=== PATIENT | male | born 1950 | race Caucasian/White ===

== ENCOUNTER 2018-01-26 22:20 | Inpatient (IN) | payer MEDICARE, OTHER ==
[~2018-01-26 22:20] MED LIST: ISOVUE-370 76%-LOCM 1 ML ONE
[2018-01-26 23:00] LABS: #Eosinphils 2.7 thou/uL (0.0-0.7); #Lymphocytes 1.5 thou/uL (1.20-3.40); #Monocytes 1.3 thou/uL (0.11-0.59); #Neutrophils 8.5 thou/uL (1.40-6.50); %Basophils 0.1 % (0.0-1.0); %Eosinophils 19.6 % (0.0-10.0); %Lymphocytes 10.5 % (21.0-51.0); %Monocytes 9.3 % (0.0-10.0); %Neutrophils 60.6 % (42.0-75.0); Hemoglobin 17.9 g/dL (14.0-18.0); Mean Corpuscular HGB CONC 32.7 g/dL (32.0-36.0); Mean Corpuscular Volume 91.6 fl (80.0-94.0); Mean Platelet Volume 7.7 fL (7.4-10.4); Platelet Count 227 thou/uL (130-400); Red Blood Cell (RBC) Count 5.96 mill/uL (4.70-6.10)
[2018-01-26] MEDS ORDERED: Ondansetron ODT 4 MG TAB ONE (23:15)
[2018-01-26 23:20] LABS: ALT (SGPT) 20 U/L (8-55); AST (SGOT) 16 U/L (5-34); Albumin 3.9 g/dL (3.4-4.8); Alkaline Phosphatase 96 U/L (40-150); Anion Gap 12 mmol/L (10-20); BUN (Urea Nitrogen) 31 mg/dL (8.4-25.7); Bilirubin, Total 0.5 mg/dL (0.2-1.2); CK (CPK) 74 U/L (30-200); Calc. Creatinine Clearance 0 mL/min (70-130); Calcium 9.1 mg/dL (7.8-10.44); Carbon Dioxide 18 mmol/L (23-31); Chloride 109 mmol/L (98-107); Estimated GFR-MDRD 46; Globulin 2.7 g/dL (2.4-3.5); Glucose 125 mg/dL (80-115); Lipase 28 U/L (8-78); Potassium 4.5 mmol/L (3.5-5.1); Protein, Total 6.6 g/dL (5.8-8.1); Sodium 134 mmol/L (136-145)
[2018-01-27] MEDS ORDERED: Ondansetron HCl/PF 4 MG/2 ML Vial IVP PRN (02:20)
[2018-01-27] MEDS ORDERED: Ondansetron ODT 4 MG TAB SL PRN (02:20)
[2018-01-27 02:38] VITALS: BMI 36.3
[2018-01-27] MEDS: Promethazine HCl 12.5 MG in Sodium Chloride 0.9% 50 ML IVPB PRN ×2 (05:15→12:31)
[2018-01-27] MEDS ORDERED: Sodium Chloride 0.9% 1,000 ML IV SCH (07:00)
--- NOTE | 2018-01-27 07:25 | CT ---
CONTRAST ENHANCED CT IMAGES OF ABDOMEN AND PELVIS: HISTORY: Abdominal pain. FINDINGS: Contrast-enhanced CT images of the abdomen and pelvis are obtained, unfortunately without benefit of oral contrast. The lung bases are unremarkable. No evidence of free intraperitoneal air is seen. The spleen is unremarkable. The liver is unremarkable, except for a tiny newly developed approximate ly 6 mm area of hypodensity in the left hepatic lobe. This lesion is too small to further characteri ze at this time. The gallbladder is unremarkable. The pancreas is unremarkable. Adrenal glands an d kidneys are unremarkable. No dilated loops of small bowel seen. A normal appendix is visualized. There does appear to be some thickening of portions of the transverse colon concerning for possible c olitis. Some fluid is seen in the sigmoid colon and rectum compatible with diarrhea. Severe bilateral L4-5 and L5-S1 facet degenerative changes are seen. IMPRESSION: Area of colonic thickening of the transverse colon concerning for colitis. Correlate with direct vis ualization. POS: [facility]
--- NOTE | 2018-01-27 13:35 | HP ---
DATE OF ADMISSION: 01/27/2018 CHIEF COMPLAINT: Severe diarrhea. HISTORY OF PRESENT ILLNESS: This is a 67-year-old morbidly obese white male with a known past medica l history of hypertension and dyslipidemia. The patient was in his usual state of health until 2 wee ks ago. He started noticing severe diarrhea, which got corrected on its own and for the past 5 days, it restarted again with severe diarrhea, having 4-5 bowel movements, loose, watery in consistency, n ot associated with blood in the stool, associated with severe vomiting occasionally. He has not been able to tolerate any diet and has been having some cramping pain in the right upper quadrant going a cross to the left upper quadrant. Pain is rated as 4 on 10 intensity, aggravated on eating. No reli eving factors. He was taking loperamide with no benefit. He has been having severe diarrhea, now is having a very sore bottom. He denies taking any antibiotics recently. Denies any sick exposure. Denies eating any outside food . His daughter is at the bedside, also has a history of Clostridium difficile, so possibly patient rahul ibanezld have had a Clostridium difficile colonization. PAST MEDICAL HISTORY: 1. Hypertension. 2. Dyslipidemia. 3. History of sinus bradycardia. PAST SURGICAL HISTORY: History of carotid endarterectomy, history of tonsillectomy. FAMILY HISTORY: Mother from lung cancer. Father had multiple vascular events and a history of AR and diabetes. SOCIAL HISTORY: The patient denies any alcohol. No history of smoking. No history of illicit drug use. He lives with his . ALLERGIES: No known drug allergies. HOME MEDICATIONS: 1. Aspirin 81 mg p.o. daily. 2. Aggrenox. 3. Esomeprazole. 4. Lisinopril. 5. Simvastatin. REVIEW OF SYSTEMS: All 12 systems are reviewed with the patient thoroughly and found to be negative at this time. Constitutional: Weight loss or gain, sense of well-being, ability to conduct usual activities, exerc ise tolerance. Skin/Breast: Rash, itching, changes in hair growth or loss, nail changes, breast lumps, tenderness, swelling, nipple discharge. Eyes: Vision, double vision, tearing, blind spots, pain. ENT/Mouth: Headaches (location, time of onset, duration, precipitating factors), vertigo, lightheadedness, injury. Vision, double vision, tearing, blind spots, pain, nose b leeding, colds, obstruction, discharge, dental difficulties, gingival bleeding, dentures, neck stiffn ess, pain, tenderness, masses in thyroid or other areas Cardiovascular: Precordial pain, substernal distress, palpitations, syncope, dyspnea on exertion, or thopnea, nocturnal paroxysmal dyspnea, edema, cyanosis, hypertension, heart murmurs, varicosities, ph lebitis, claudication. Respiratory: Pain, shortness of breath, wheezing, stridor, cough, hemoptysis, fever or night sweats Gastrointestinal: Poor appetite, dysphagia, indigestion, abdominal pain, heartburn, eructation, naus ea, vomiting, hematemesis, jaundice, constipation, or diarrhea, abnormal stools (aracelis-colored, tarry, bloody, greasy, foul smelling), flatulence, hemorrhoids, recent changes in bowel habits. Genitourinary: Urgency, frequency, dysuria, nocturia, hematuria, polyuria, oliguria, unusual (or delmi nge in) color of urine, stones, hesitancy, change in size of stream, dribbling, acute retention or in continence, libido, potency. Musculoskeletal: Pain, swelling, redness or heat of muscles or joints, limitation, of motion, muscular weakness, atrophy, cramps. Neurologic/Psychiatric: Convulsions, paralyses, tremor, incoordination, parasthesias, difficulties w ith memory of speech, sensory or motor disturbances, or muscular coordination (ataxia, tremor), emoti onal problems, anxiety, depression, previous psychiatric care, unusual perceptions, hallucinations. Allergy/Immunologic: Skin rash, anemia, bleeding tendency, polydipsia, polyuria, intolerance to heat or cold. ALLERGIES: No known drug allergies. PHYSICAL EXAMINATION: VITAL SIGNS: Blood pressures are 143/80, heart rate is 56, respiratory rate 16, saturation 95%. GENERAL: The patient is seen lying in the bed supine, does not appear to be in acute distress at thi s time. HEENT: Atraumatic, normocephalic. PERRLA. Extraocular movements were intact. Oral mucosa is dry. CARDIOVASCULAR: S1, S2 normal. No murmurs, rubs or gallops. LUNGS: Bilateral air entry was equal. No wheezing, no crackles. ABDOMEN: Soft, nontender. No guarding. No rebound tenderness. Bowel sounds are normal. MUSCULOSKELETAL: No calf tenderness. No pedal edema. No joint tenderness. No joint swelling. SKIN: No cyanosis, no erythema, no rash, no pallor. NEUROLOGIC: Cranial nerve examination II-XII intact. No focal deficits were noted at this time. LABORATORY DATA: WBC is 14,000, hemoglobin 17.9, hematocrit 54.6, platelets 227. Sodium is 134, pot assium 4.5, chloride 109, bicarbonate is 18, BUN is 31, creatinine 1.51. CT of the abdomen was done this morning showed an area of colonic thickening of the transverse colon concerning for colitis. ASSESSMENT AND PLAN: 1. Acute infectious colitis. 2. Sepsis. 3. Acute kidney injury. 4. Severe dehydration. 5. Possible Clostridium difficile colitis. 6. Hypertension. 7. Hyperlipidemia. 8. History of sinus bradycardia. PLAN: 1. Plan is to closely monitor this patient. We will start the patient on IV antibiotics and we will consult GI as the patient has colonic wall thickening and the patient might end up needing a colonos copy. 2. We will start the patient on ciprofloxacin and Flagyl 500 mg IV q.8 hours. We will wait for the stool sample for Clostridium difficile infection. 3. The patient has evidence of sepsis with elevated white count. We will closely monitor this patie nt for any development of worsening sepsis. 4. The patient has elevated creatinine, most likely from severe dehydration. We will continue with aggressive IV hydration at this time. 5. The patient has sinus bradycardia which has been persistent for many years. We will closely brittany tor the patient. Patient is not symptomatic with low heart rate. 6. DVT prophylaxis, on Lovenox. I spent 75 minutes with this patient.
[2018-01-27] MEDS: metroNIDAZOLE 500 MG in Premix Bag 1 BAG IVPB SCH ×2 (14:07→20:59)
[2018-01-27] MEDS: Sodium Chloride 0.9% 1,000 ML IV SCH (18:09)
--- NOTE | 2018-01-27 20:33 | CON ---
DATE OF CONSULTATION: 01/27/2018 HISTORY OF PRESENT ILLNESS: The patient is a 67-year-old male who was in his usual state o f health until 2 weeks prior to admission when he started developing diarrhea. He had it for 2 days and then it seemed to resolve, but then came back more severe after being gone for 3 days. He had mu ltiple bowel movements. He was seen in the [facility] and was told that his kidn ey functions were elevated. He denies any abdominal pain, any nausea, vomiting, any recent weight lo ss. He denies any antibiotic use prior to this episode. He denies any travel outside the country. He denies any blood in his stool. He reports he had a colonoscopy here approximately 3 years ago. PAST MEDICAL HISTORY: Significant for hypertension, hyperlipidemia, bradycardia. PAST SURGICAL HISTORY: Includes carotid endarterectomy, cataract surgery. SOCIAL HISTORY: Does not smoke or drink. FAMILY HISTORY: Negative for GI or liver disease. ALLERGIES: No known allergies. MEDICATIONS: Simvastatin 20 mg p.o. q.8 hours, lisinopril/hydrochlorothiazide 20/25 one p.o. daily, Nexium 20 mg p.o. daily, aspirin 1 p.o. daily, Aggrenox 1 p.o. b.i.d. REVIEW OF SYSTEMS: Constitutional: No fever, chills. No weight loss. Eyes: No blurred vision or double vision. ENT: No sore throat or earaches. Cardiovascular: No chest pain or palpitation. Pu lmonary: No shortness of breath, cough, or wheezing. Gastrointestinal: See above. Genitourinary: No hematuria or dysuria. Musculoskeletal: No joint pain or muscle ache. Skin: No rashes. Neurol ogic: No seizure activity or numbness. PHYSICAL EXAMINATION: GENERAL: Shows overweight male in no acute distress. VITAL SIGNS: Temperature 98, pulse 56, respiratory rate 16, blood pressure 143/80. HEENT: Unremarkable. NECK: Supple. CHEST: Clear. CARDIOVASCULAR: Regular rate and rhythm. ABDOMEN: Soft, nontender without organomegaly or masses. Bowel sounds are present and normoactive. RECTAL: Deferred. EXTREMITIES: Normal. NEUROLOGIC: Nonfocal. LABORATORY DATA: White blood cell count of 14, hemoglobin of 17.9, hematocrit of 54.6. Chemistries significant for sodium 134, chloride 109, CO2 of 18, BUN 31, creatinine 1.51, glucose 125. Stool for lactoferrin was elevated. Stool for rapid parasite screen was negative. Abdominal and pelvic CT sh owed area of colonic thickening in the transverse colon concerning for colitis. Reviewing old record s, the patient underwent an EGD and colonoscopy on 09/25/2015 for a history of nausea, vomiting, diar marli, and abdominal pain with abnormal CT showing mural thickening in the distal small bowel and prox imal dilatation. Both exams were normal. ASSESSMENT: Acute diarrhea - probably infectious. Colonoscopy from 2-1/2 years ago was essentially negative. RECOMMENDATIONS: 1. Continue stool studies. 2. Empiric antibiotics. 3. Hold on colonoscopy at this time pending stool studies and response to antibiotics.
[2018-01-27] MEDS: Atorvastatin Calcium 10 MG TAB PO SCH (20:58)
[2018-01-27] MEDS: Aggrenox 200-25mg CAP PO SCH (20:58)
[2018-01-27] MEDS ORDERED: Simvastatin 20 MG TAB PO SCH (21:00)
[2018-01-28] MEDS: Sodium Chloride 0.9% 1,000 ML IV SCH ×2 (04:01→15:04)
[2018-01-28] MEDS: metroNIDAZOLE 500 MG in Premix Bag 1 BAG IVPB SCH ×3 (04:01→20:57)
[2018-01-28 05:11] LABS: Anion Gap 5 mmol/L (10-20); BUN (Urea Nitrogen) 24 mg/dL (8.4-25.7); Calc. Creatinine Clearance 91 mL/min (70-130); Calcium 8.4 mg/dL (7.8-10.44); Carbon Dioxide 27 mmol/L (23-31); Chloride 112 mmol/L (98-107); Estimated GFR-MDRD 56; Glucose 97 mg/dL (80-115); Potassium 4.4 mmol/L (3.5-5.1); Sodium 140 mmol/L (136-145)
[2018-01-28 05:24] LABS: Band 6 % (5-11); Eosinophils 35 % (0-10); Hemoglobin 14.7 g/dL (14.0-18.0); Lymphocytes 9 % (21-51); MDiff Complete? YES; Mean Corpuscular HGB CONC 32.9 g/dL (32.0-36.0); Mean Corpuscular Hemoglobin 30.2 pg (27.0-31.0); Mean Platelet Volume 7.9 fL (7.4-10.4); Monocytes 7 % (0-10); Neutrophil 42 % (42-75); Nucleated RBC 1 % (0); PLT Morphology Comment Appears Adequate; Platelet Count 210 thou/uL (130-400); RBC Distribution Width 12.9 % (11.5-14.5); Red Blood Cell (RBC) Count 4.87 mill/uL (4.70-6.10); White Blood Cell (WBC) Count 13.6 thou/uL (4.8-10.8)
[2018-01-28] MEDS: Aggrenox 200-25mg CAP PO SCH ×2 (08:18→20:56)
[2018-01-28] MEDS ORDERED: Aspirin 325 MG TAB PO SCH (09:00)
--- NOTE | 2018-01-28 12:44 | PRG ---
DATE OF SERVICE: 01/28/2018 SUBJECTIVE: The patient is feeling much better today. He is having no diarrhea, no nausea, vomiting , no abdominal pain. OBJECTIVE: VITAL SIGNS: Temperature is 98.5, pulse 57, respiratory rate 18, blood pressure 128/70. HEENT: Unremarkable. NECK: Supple. CHEST: Clear. CARDIOVASCULAR: Regular rate and rhythm. ABDOMEN: Benign. LABORATORY DATA: Shows a white blood cell count 13.6. BMP shows chloride 112. Stool for C. diffici le is negative. ASSESSMENT: Acute infectious diarrhea -- seems to be resolving. RECOMMENDATIONS: 1. Continue antibiotics. 2. No colonoscopy at this time. 3. Stable for discharge from a gastrointestinal standpoint.
--- NOTE | 2018-01-28 14:57 | PDOC.PN ---
- Subjective Encounter Start Date: 01/28/18 Encounter Start Time: 13:00 PAtient is seen today, alert and oriented,. his Diarrhea is improved now, pt is on IV abx, WBC is trending luis, he has lot of Eosinophils likely has some parasite contributing to diarrhea, - Objective MAR Reviewed: Yes Vital Signs & Weight: Vital Signs (12 hours) Temp Pulse Resp BP BP Pulse Ox 01/28/18 11:30 98.5 F 793 H 18 128/70 93 L 01/28/18 08:00 97.7 F 57 L 16 18 L 01/28/18 07:43 97.7 F 57 L 16 136/73 96 Weight Admit Weight 253 lb 8 oz Weight 253 lb 8 oz I&O: 01/27/18 01/28/18 01/29/18 06:59 06:59 06:59 Intake Total 400 Output Total 750 Balance -350 Result Diagrams: 01/28/18 03:58 01/28/18 03:58 Radiology Reviewed by me: Yes Phys Exam - Physical Examination HEENT: PERRLA, moist MMs Neck: no nodes, no JVD Respiratory: no wheezing, no rales Cardiovascular: RRR, no significant murmur Gastrointestinal: soft, non-tender Musculoskeletal: no edema, pulses present Neurological: non-focal, normal sensation Lymphatic: no nodes Psychiatric: normal affect, A&O x 3 Skin: no rash, normal turgor Dx/Plan (1) Severe diarrhea Code(s): K52.9 - NONINFECTIVE GASTROENTERITIS AND COLITIS, UNSPECIFIED Status : Acute Comment: Diarrhea is improved, Will continue with IV antibiotics, Will order Stool Camplyobacter/ giardia cultures.Add probiotics. (2) Acute infectious Colitis Status: Acute Comment: Will continue with IV Flagyl/ Levoflocacin, pt WBC is trending down, Improving Diarrhea, No pain today. (3) Colonic thickening Code(s): K63.9 - DISEASE OF INTESTINE, UNSPECIFIED Status: Acute Comment: GI is consulted, No Colonoscopy planned . (4) Severe dehydration Code(s): E86.0 - DEHYDRATION Status: Acute Comment: Improving, Will encourage oral hydration, d/c IV fluids. (5) Morbid obesity Code(s): E66.01 - MORBID (SEVERE) OBESITY DUE TO EXCESS CALORIES Status: Acute - Plan cont current plan of care, gong catheter, continue antibiotics, PT/OT, incentive spirometry, out of bed/ambulate, DVT proph w/SCDs * .
[2018-01-28] MEDS: Atorvastatin Calcium 10 MG TAB PO SCH (20:56)
[2018-01-28] MEDS: Saccharomyces boulardii 250 MG CAP PO SCH (20:56)
[2018-01-29 05:02] LABS: Anion Gap 6 mmol/L (10-20); BUN (Urea Nitrogen) 21 mg/dL (8.4-25.7); Calc. Creatinine Clearance 100 mL/min (70-130); Calcium 8.5 mg/dL (7.8-10.44); Carbon Dioxide 25 mmol/L (23-31); Chloride 113 mmol/L (98-107); Estimated GFR-MDRD 62; Glucose 88 mg/dL (80-115); Potassium 3.9 mmol/L (3.5-5.1); Sodium 140 mmol/L (136-145)
[2018-01-29 05:09] LABS: Band 3 % (5-11); Eosinophils 27 % (0-10); Hemoglobin 13.5 g/dL (14.0-18.0); Lymphocytes 26 % (21-51); MDiff Complete? YES; Mean Corpuscular Hemoglobin 31.3 pg (27.0-31.0); Mean Corpuscular Volume 91.9 fl (80.0-94.0); Mean Platelet Volume 7.7 fL (7.4-10.4); Monocytes 5 % (0-10); Neutrophil 39 % (42-75); PLT Morphology Comment Appears Adequate; Platelet Count 196 thou/uL (130-400); RBC Distribution Width 12.7 % (11.5-14.5); Red Blood Cell (RBC) Count 4.31 mill/uL (4.70-6.10)
[2018-01-29] MEDS: metroNIDAZOLE 500 MG in Premix Bag 1 BAG IVPB SCH ×3 (05:11→20:16)
[2018-01-29] MEDS: Saccharomyces boulardii 250 MG CAP PO SCH ×2 (09:23→20:16)
[2018-01-29] MEDS: Aggrenox 200-25mg CAP PO SCH ×2 (09:23→20:16)
--- NOTE | 2018-01-29 12:45 | PDOC.PN ---
- Subjective Encounter Start Date: 01/29/18 Encounter Start Time: 10:25 Subjective: still having watery diarrhea, 2 overnight and 1 this am -: at bedside -: no nausea or vomiting, is eating well - Objective MAR Reviewed: Yes Vital Signs & Weight: Vital Signs (12 hours) Temp Pulse Resp BP Pulse Ox 01/29/18 09:25 96.7 F L 58 L 18 92 L 01/29/18 07:49 96.7 F L 58 L 18 123/71 92 L Weight Admit Weight 253 lb 8 oz Weight 253 lb 8 oz I&O: 01/28/18 01/29/18 01/30/18 06:59 06:59 06:59 Intake Total 400 1100 Output Total 750 Balance -350 1100 Result Diagrams: 01/29/18 04:01 01/29/18 04:01 Phys Exam - Physical Examination HEENT: PERRLA, moist MMs Neck: no JVD, supple Respiratory: no wheezing, no rales Cardiovascular: RRR, no significant murmur Gastrointestinal: soft, non-tender, no distention, positive bowel sounds Musculoskeletal: no edema, pulses present Neurological: non-focal, moves all 4 limbs Psychiatric: normal affect, A&O x 3 Dx/Plan (1) Acute infectious Colitis Status: Acute (2) Dehydration Code(s): E86.0 - DEHYDRATION Status: Resolved (3) Dyslipidemia Code(s): E78.5 - HYPERLIPIDEMIA, UNSPECIFIED Status: Chronic (4) Hypertension Code(s): I10 - ESSENTIAL (PRIMARY) HYPERTENSION Status: Chronic Qualifiers: Hypertension type: essential hypertension Qualified Code(s): I10 - Essential (primary) hypertension (5) Obesity (BMI 30-39.9) Code(s): E66.9 - OBESITY, UNSPECIFIED Status: Chronic - Plan likely viral gastroenteritis and colitis -: is slowly resolving -: dc plan in am, d/w and pt at bedside -: is on levaquin and flagyl -: on lipitor and aggrenox, to amb as tolerated in hallway * . Review of Systems - Medications/Allergies Allergies/Adverse Reactions: Allergies Allergy/AdvReac Type Severity Reaction Status Date / Time No Known Drug Allergies Allergy Verified 10/06/13 22:37 Medications: Current Medications Atorvastatin Calcium (Lipitor) 10 mg PO HS [facility] Last Admin: 01/28/18 20:56 Dose: 10 mg Dipyridamole/Aspirin (Aggrenox) 1 cap PO BID [facility] Last Admin: 01/29/18 09:23 Dose: 1 cap Promethazine HCl 12.5 mg/ (Sodium Chloride) 50.5 mls @ 202 mls/hr IVPB Q6H PRN PRN Reason: Nausea/Vomiting Last Admin: 01/27/18 12:31 Dose: 50.5 mls Levofloxacin 500 mg/ Device 100 mls @ 100 mls/hr IVPB Q24HR [facility] Last Admin: 01/28/18 14:53 Dose: 100 mls Metronidazole 500 mg/ Device 100 mls @ 100 mls/hr IVPB Q8HR [facility] Last Admin: 01/29/18 05:11 Dose: 100 mls Saccharomyces Boulardii (Florastor) 250 mg PO BID [facility] Last Admin: 01/29/18 09:23 Dose: 250 mg Sodium Chloride (Flush - Normal Saline) 10 ml IVF PRN PRN PRN Reason: Saline Flush
[2018-01-29] MEDS: Atorvastatin Calcium 10 MG TAB PO SCH (20:16)
[2018-01-30 05:02] LABS: Anion Gap 7 mmol/L (10-20); BUN (Urea Nitrogen) 17 mg/dL (8.4-25.7); Calc. Creatinine Clearance 105 mL/min (70-130); Carbon Dioxide 25 mmol/L (23-31); Chloride 113 mmol/L (98-107); Estimated GFR-MDRD 66; Glucose 87 mg/dL (80-115); Sodium 141 mmol/L (136-145)
[2018-01-30] MEDS: metroNIDAZOLE 500 MG in Premix Bag 1 BAG IVPB SCH (05:54)
[2018-01-30 06:38] LABS: Band 2 % (5-11); Eosinophils 33 % (0-10); Hemoglobin 13.9 g/dL (14.0-18.0); Lymphocytes 13 % (21-51); MDiff Complete? YES; Mean Corpuscular HGB CONC 33.7 g/dL (32.0-36.0); Mean Corpuscular Hemoglobin 30.7 pg (27.0-31.0); Mean Corpuscular Volume 91.3 fl (80.0-94.0); Mean Platelet Volume 7.8 fL (7.4-10.4); Monocytes 4 % (0-10); Neutrophil 47 % (42-75); Platelet Count 202 thou/uL (130-400); RBC Distribution Width 12.5 % (11.5-14.5); Reactive Lymphocytes 1 % (0-10); Red Blood Cell (RBC) Count 4.53 mill/uL (4.70-6.10); White Blood Cell (WBC) Count 12.1 thou/uL (4.8-10.8)
[2018-01-30 07:40] VITALS: BP 136/68; TEMP 97.6
[2018-01-30] MEDS: Aggrenox 200-25mg CAP PO SCH (09:02)
[2018-01-30] MEDS: Saccharomyces boulardii 250 MG CAP PO SCH (09:02)
--- NOTE | 2018-01-30 10:49 | PDOC.PN ---
- Subjective Encounter Start Date: 01/30/18 Encounter Start Time: 08:00 Subjective: has semiformed stool now -: no nausea, is tolerating oral diet - Objective MAR Reviewed: Yes Vital Signs & Weight: Vital Signs (12 hours) Temp Pulse Resp BP Pulse Ox 01/30/18 07:48 97.6 F 55 L 20 94 L 01/30/18 07:40 97.6 F 55 L 20 136/68 94 L Weight Admit Weight 253 lb 8 oz Weight 253 lb 8 oz I&O: 01/29/18 01/30/18 01/31/18 06:59 06:59 06:59 Intake Total 1100 2000 Balance 1100 1999 Result Diagrams: 01/30/18 03:43 01/30/18 03:43 Phys Exam - Physical Examination HEENT: PERRLA, moist MMs Neck: no JVD, supple Respiratory: no wheezing, no rales Cardiovascular: RRR, no significant murmur Gastrointestinal: soft, non-tender, positive bowel sounds Musculoskeletal: no edema, pulses present Neurological: non-focal, moves all 4 limbs Psychiatric: normal affect, A&O x 3 Dx/Plan (1) Acute infectious Colitis Status: Acute (2) Dehydration Code(s): E86.0 - DEHYDRATION Status: Resolved (3) Dyslipidemia Code(s): E78.5 - HYPERLIPIDEMIA, UNSPECIFIED Status: Chronic (4) Hypertension Code(s): I10 - ESSENTIAL (PRIMARY) HYPERTENSION Status: Chronic Qualifiers: Hypertension type: essential hypertension Qualified Code(s): I10 - Essential (primary) hypertension (5) Obesity (BMI 30-39.9) Code(s): E66.9 - OBESITY, UNSPECIFIED Status: Chronic - Plan hemostable -: dc pt home -: to f/u with PCP in 1 week -: low fiber diet, d/w and pt at bedside * .
--- NOTE | 2018-01-30 14:40 | DIS ---
DATE OF ADMISSION: 01/26/2018 DATE OF DISCHARGE: 01/30/2018 DISCHARGE DISPOSITION: To home. PRIMARY DISCHARGE DIAGNOSES: Likely viral gastroenteritis/colitis, dehydration resolved, hypertensio n, dyslipidemia, obesity. PROCEDURES DONE DURING HOSPITALIZATION: Abdominal and pelvic CAT scan done showed area of colonic th ickening of the transverse colon concerning for colitis. Stool for C. diff, E. coli, Shiga toxin, Ca mpylobacter antigen, all of them were negative. A rapid parasite screen was negative for Giardia and cryptosporidium antigens as well. INPATIENT CONSULT: Dr. Cee for Gastroenterology. LABORATORY DATA: Had a white count of 14 with 60% neutrophils and 19% eosinophils on the day of admi ssion. Admitting BUN and creatinine were 31 and 1.5. Discharge creatinine of 17 and 1.1. DISCHARGE MEDICATIONS: Cipro 500 mg p.o. twice daily for 4 days, Flagyl 500 mg p.o. 3 times daily fo r 4 days, Florastor 250 mg twice daily, simvastatin 20 mg p.o. at bedtime, lisinopril with hydrochlor othiazide 20/25 mg 1 tab daily, Nexium 20 mg daily, and Aggrenox 1 capsule twice daily. ALLERGIES: No known drug allergies. DISCHARGE PLAN: Patient to follow up with Dr. Cee as advised and primary care physician in 1 week. BRIEF COURSE DURING HOSPITALIZATION: Patient initially got admitted on the with complaints of w atery diarrhea and abdominal pain. He had nearly 5-6 times of watery diarrhea. This progressively w orsened to 10 times per patient. He has had a complete stool workup done and has been negative for i nfectious agents including bacterial and protozoal. Stool for C. diff was negative as well. Likely patient had viral gastroenteritis which is resolving. At the time of discharge, he is forming semi-s olid stools with frequency of 1-2 per day. He is tolerating oral solid diet. He had consultation [facility] Dr. Cee for Gastroenterology. The patient has had normal colonoscopy two and a half years ago. He needs follow up with Dr. Cee as advised. Please see a [id number] documentation on [facility]BE for the day of discharge. He has been advised to eat low fiber diet.
== END 2018-01-30 10:24 | disposition home or self-care (01) | DRG 391 ==
LOC: ERS 22:20 → T4-A 01-27 01:22 → OBSVTOIN 01-27 13:13
PROVIDERS: ADMIT Internal Medicine; ATTEND Internal Medicine
DX: A08.4 Viral intestinal infection, unspecified (principal); A41.9 Sepsis, unspecified organism; E86.0 Dehydration; I10 Essential (primary) hypertension; E78.5 Hyperlipidemia, unspecified; E66.9 Obesity, unspecified; Z68.36 Body mass index [BMI] 36.0-36.9, adult; R00.1 Bradycardia, unspecified
CPT/HCPCS: 36415; 74177; 80048; 80053; 82550; 83630; 83690; 85025; 86674; 87045; 87046; 87324; 87328; 87329; 87449; 87899; 96360; 96361; J1956; J2550; J7050; Q0162

== ENCOUNTER 2018-09-24 20:36 | Inpatient (IN) | payer MEDICARE ==
--- NOTE | 2018-09-24 22:39 | ULT ---
ULTRASOUND WITH DOPPLER DUPLEX VENOUS LOWER EXTREMITY LEFT: 09/24/18 at 10:04 p.m. HISTORY: 68-year-old male with left lower extremity pain and edema. The aerial installer, Brittanie, notified ER charge nurse Evelyn, just before this dictation, of the acute DVT . TECHNIQUE: Color flow Doppler, spectral waveform analysis of pulsed Doppler, and mullins-scale imaging with yesica lori and augmentation, were used to evaluate the left common femoral, femoral, popliteal, posterior t ibial, and superficial femoral, veins; and the proximal portions of the profunda femoral and greater saphenous, veins. FINDINGS: There is acute thrombus causing vessel expansion, and noncompressibility, of the entire left femoral vein, popliteal vein, and posterior tibial vein. There is no blood flow in the popliteal vein. There is blood flow around the clot in the posterior tibial vein and femoral vein. There is no thrombus in the common femoral vein or profunda femoral vein. IMPRESSION: Positive for acute deep venous thrombosis of the entire left femoral vein, popliteal vein, and private duty nurse ior tibial vein. Code CR WIL Goncalves POS: [facility]
[2018-09-24 23:00] LABS: #Basophils 0.1 thou/uL (0.0-0.2); #Lymphocytes 1.2 thou/uL (1.20-3.40); #Monocytes 0.7 thou/uL (0.11-0.59); #Neutrophils 5.4 thou/uL (1.40-6.50); %Basophils 0.6 % (0.0-1.0); %Eosinophils 12.4 % (0.0-10.0); %Lymphocytes 14.3 % (21.0-51.0); %Monocytes 8.4 % (0.0-10.0); %Neutrophils 64.3 % (42.0-75.0); Hemoglobin 13.1 g/dL (14.0-18.0); Mean Corpuscular HGB CONC 33.3 g/dL (32.0-36.0); Mean Corpuscular Hemoglobin 30.2 pg (27.0-31.0); Mean Corpuscular Volume 90.6 fL (78.0-98.0); Mean Platelet Volume 7.9 fL (7.4-10.4); Platelet Count 177 thou/uL (130-400); RBC Distribution Width 12.2 % (11.5-14.5); Red Blood Cell (RBC) Count 4.34 mill/uL (4.70-6.10); White Blood Cell (WBC) Count 8.3 thou/uL (4.8-10.8)
[2018-09-24 23:05] LABS: INR-International Normal Ratio 1.1; PTT 32.5 SEC (22.9-36.1); Prothrombin Time 14.1 SEC (12.0-14.7)
[2018-09-24 23:22] LABS: ALT (SGPT) 35 U/L (8-55); AST (SGOT) 35 U/L (5-34); Albumin 3.6 g/dL (3.4-4.8); Alkaline Phosphatase 95 U/L (40-150); Anion Gap 16 mmol/L (10-20); BUN (Urea Nitrogen) 22 mg/dL (8.4-25.7); Bilirubin, Total 0.7 mg/dL (0.2-1.2); Calc. Creatinine Clearance 0 mL/min (70-130); Calcium 9.1 mg/dL (7.8-10.44); Carbon Dioxide 20 mmol/L (23-31); Chloride 108 mmol/L (98-107); Estimated GFR-MDRD 44; Globulin 2.9 g/dL (2.4-3.5); Glucose 94 mg/dL (80-115); Potassium 4.1 mmol/L (3.5-5.1); Protein, Total 6.5 g/dL (5.8-8.1); Sodium 140 mmol/L (136-145)
[2018-09-24] MEDS ORDERED: Enoxaparin Sodium 30 MG/0.3 ML SYRINGE ONE (23:36)
[2018-09-24] MEDS ORDERED: Enoxaparin Sodium 100 MG/ML SYRINGE ONE (23:36)
[2018-09-25 01:31] VITALS: BMI 33.9
[2018-09-25] MEDS ORDERED: Sodium Chloride 0.9% 1,000 ML IV SCH (02:15)
--- NOTE | 2018-09-25 08:13 | ULT ---
RIGHT LOWER EXTREMITY VENOUS DUPLEX EXAM: History Right leg pain and swelling. FINDINGS: Real-time color Doppler evaluation of the right lower extremity was performed from groin to calf. hi s includes evaluation of the common femoral, superficial and profunda femoral, saphenous, popliteal, and posterior tibial vein. This shows a patent deep venous system. There is normal compressibility and augmentation. IMPRESSION: 1. No evidence of deep vein thrombosis of the right lower extremity. 2. This report is in agreement with the temporary report issued by [facility]. POS: [facility]
[2018-09-25] MEDS ORDERED: Zolpidem Tartrate 5 MG TAB PO PRN (09:43)
[2018-09-25] MEDS ORDERED: Fentanyl 100 MCG/2 ML VIAL SLOW IVP PRN (09:43)
[2018-09-25] MEDS ORDERED: Ondansetron PF 4 MG/2 ML Vial SLOW IVP PRN (09:45)
--- NOTE | 2018-09-25 11:01 | HP ---
CHIEF COMPLAINT: On admission is extensive DVT to the left leg. HISTORY OF PRESENT ILLNESS: The patient is a 68-year-old male, who was in his usual state of good health until he was awoke with severe pain on 09/19/2018. He describes it as severe cramping. His right leg was involved as well as his left leg, but the pain was very intense, more than it ever had before. It continued to cause him pain over the weekend and through the week, so that he finally came to see Dr. Weinberg on the day of admission. He normally takes Aggrenox and aspirin daily and when he was in Dr. Weinberg' office, samples of Eliquis were given to him in case this did in fact glove turner and former to be a DVT. Due to his physical exam in the office with swelling, tenderness, and painful ambulation, he was sent for D-dimer and was given also an order for sonogram of the leg. When Dr. Weinberg received the D-dimer results of greater than 6, he called the patient at his home and told me that he would benefit from going to the ER to have a sonogram right then that it appeared that there was indeed a DVT. The patient then went to the emergency room on 09/24/2018, where an ultrasound was performed showing an extensive DVT throughout the entire course of the left femoral vein involving the peroneal and popliteal veins as well. At this point, Dr. Weinberg was contacted for initiation of observation and vascular surgeon consultation. PAST MEDICAL HISTORY: Significant for previous TIA, CVA, hypertension, hyperlipidemia, and obstructive sleep apnea. PAST SURGICAL HISTORY: Surgeries include cataracts bilaterally, tonsillectomy, and left carotid endarterectomy. PAST PSYCHIATRIC HISTORY: None. SOCIAL HISTORY: He is . Retired. There is no smoking history. Lives at home with his . No alcohol or illicit drug use. ALLERGIES: NO KNOWN DRUG ALLERGIES. MEDICATIONS ON ADMISSION: 1. Lisinopril 20 mg daily. 2. Aggrenox 25/200 daily. 3. Aspirin 325 daily. 4. Nexium 20 mg daily. 5. Simvastatin 20 mg at bedtime. 6. Glucosamine and chondroitin sulfate for arthritis, unknown dose. REVIEW OF SYSTEMS: At the initiation of observation, CONSTITUTIONAL: He denies fever, chills, or general malaise. HEENT: No sores in ears, nose, or throat with drainage or discharge. CHEST: Without dyspnea, cough, or wheezing. CARDIOVASCULAR: Denies any palpitations or chest pain. GASTROINTESTINAL: Denies nausea, vomiting, or diarrhea. : Denies dysuria, blood in urine or stool. MUSCULOSKELETAL: Has significant pain in the left lower extremity and some in the right. There is significant edema of the entire left leg with tenderness on compression of the musculature of the cath behind the left knee and in the distal thigh. SKIN: Without acute rashes or lesions or changes. NEUROLOGIC: Denies any headaches or problems with mentation, paresthesia, or anesthesia. HEME/LYMPHATIC: Significant for the abnormal swelling in his left leg. Other than that, no bruising or new lesions. PHYSICAL EXAMINATION: VITAL SIGNS: At the time of admission, blood pressure 133/82, pulse 74, respirations 16, temperature 98.8 with a pain scale of 5/10, and O2 saturation 94% on room air. GENERAL: This is a well-developed, well-nourished, elderly male, alert, oriented, cooperative. HEENT: Normocephalic, atraumatic. Pupils are equal, round, and reactive to light. Extraocular muscles are intact. Arcus senilis bilaterally. TMs, nares, and pharynx are clear. NECK: Supple. Trachea midline. CHEST: Clear to auscultation. HEART: Regular rate and rhythm without murmur. ABDOMEN: Soft, nontender without organomegaly. GENITOURINARY: Deferred. EXTREMITIES: With swelling of the left lower extremity. Painful range of motion. Other extremities are without clubbing, cyanosis, or edema. Normal range of motion without pain. SKIN: Without bruising or ecchymosis. NEUROLOGIC: Cranial nerves are intact. Gait is painful to the left leg, but sensory exam is intact. Mental status is baseline. LABORATORY DATA: The lab work on admission shows WBCs 8.3, hemoglobin is 13.1, hematocrit 39.3, and platelets at 177. Sodium 140, potassium 4.1, chloride 108, CO2 of 20, BUN 22, creatinine 1.56, glucose 94, and calcium 9.1. AST 35, other liver functions normal. PT 14.1, INR 1.1, and APTT is 32.5. IMAGING DATA: Ultrasound as previously mentioned showed DVT to the entire left femoral vein evolving some of the popliteal and tibial veins as well. The right lower extremity was also evaluated due to the extensiveness of the left and had no DVT. ASSESSMENT: 1. Extensive deep vein thrombosis to the left lower extremity. 2. Hypertension. 3. Dyslipidemia. 4. Obstructive sleep apnea. 5. History of carotid endarterectomy/transient ischemic attack. PLAN: Vascular Surgeon consult to assess for the possible need of thrombectomy. We use Lovenox 1 mg/kg q.12 and serially re-evaluate him. Job ID: [id number]
[2018-09-25] MEDS: Enoxaparin Sodium 120 MG/0.8 ML SYRINGE SC SCH ×2 (11:06→20:30)
[2018-09-25] MEDS ORDERED: Atorvastatin Calcium 10 MG TAB PO SCH (21:00)
--- NOTE | 2018-09-26 00:05 | CON ---
DATE OF CONSULTATION: 09/25/2018 HISTORY OF PRESENT ILLNESS: Mr. Forman is a 68-year-old gentleman, who presented with left leg pain. He had an ultrasound performed, which shows extensive thrombus within the left common femoral, popliteal, and posterior tibial venous system. He has no contraindication to anticoagulation and should be fully anticoagulated for 6 months. There is no indication for venous thrombectomy. Job ID: [id number]
[2018-09-26 07:18] LABS: #Basophils 0.1 thou/uL (0.0-0.2); #Eosinphils 0.8 thou/uL (0.0-0.7); #Lymphocytes 0.9 thou/uL (1.20-3.40); #Monocytes 0.5 thou/uL (0.11-0.59); #Neutrophils 4.3 thou/uL (1.40-6.50); %Basophils 0.9 % (0.0-1.0); %Lymphocytes 13.3 % (21.0-51.0); %Neutrophils 65.9 % (42.0-75.0); Hemoglobin 12.7 g/dL (14.0-18.0); Mean Corpuscular HGB CONC 32.4 g/dL (32.0-36.0); Mean Corpuscular Hemoglobin 29.2 pg (27.0-31.0); Mean Corpuscular Volume 89.9 fL (78.0-98.0); Mean Platelet Volume 8.7 fL (7.4-10.4); Platelet Count 183 thou/uL (130-400); RBC Distribution Width 11.8 % (11.5-14.5); Red Blood Cell (RBC) Count 4.35 mill/uL (4.70-6.10); White Blood Cell (WBC) Count 6.5 thou/uL (4.8-10.8)
[2018-09-26 07:36] LABS: Anion Gap 12 mmol/L (10-20); BUN (Urea Nitrogen) 17 mg/dL (8.4-25.7); Calc. Creatinine Clearance 116 mL/min (70-130); Calcium 9.1 mg/dL (7.8-10.44); Carbon Dioxide 21 mmol/L (23-31); Cardiac Risk 5.4 (Less than 4.5); Chloride 110 mmol/L (98-107); Cholesterol 136 mg/dl (< 200 Desired); Estimated GFR-MDRD 79; Glucose 99 mg/dL (80-115); HDL Cholesterol 25 mg/dL (>60 Neg Risk); LDL Cholesterol, Calculated 91 mg/dL; Potassium 4.3 mmol/L (3.5-5.1); Sodium 139 mmol/L (136-145); Triglycerides 99 mg/dL (Less than 150)
[2018-09-26 08:22] VITALS: TEMP 98
[2018-09-26] MEDS ORDERED: Lisinopril 20 MG TAB PO SCH (09:00)
[2018-09-26 09:08] VITALS: BP 165/83
[2018-09-26] MEDS: Enoxaparin Sodium 120 MG/0.8 ML SYRINGE SC SCH (09:08)
== END 2018-09-26 10:20 | disposition home or self-care (01) | DRG 301 ==
LOC: ERS 20:36 → SURG B 23:14 → OBSVTOIN 09-25 17:45
PROVIDERS: ADMIT Specialist; ATTEND Specialist
DX: I82.412 Acute embolism and thrombosis of left femoral vein (principal); I82.432 Acute embolism and thrombosis of left popliteal vein; I82.442 Acute embolism and thrombosis of left tibial vein; I10 Essential (primary) hypertension; E78.5 Hyperlipidemia, unspecified; G47.33 Obstructive sleep apnea (adult) (pediatric); Z98.41 Cataract extraction status, right eye; Z98.42 Cataract extraction status, left eye; Z90.89 Acquired absence of other organs; Z86.73 Personal history of transient ischemic attack (TIA), and cerebral infarction without residual deficits; Z98.890 Other specified postprocedural states
CPT/HCPCS: 36415; 80048; 80053; 80061; 85025; 85610; 85730; 96372; J1650

== ENCOUNTER 2019-02-03 16:57 | Observation (INO) | payer MEDICARE ==
[2019-02-03 18:06] VITALS: BMI 35.9
[2019-02-03 18:33] LABS: #Basophils 0.1 thou/uL (0.0-0.2); #Eosinphils 0.3 thou/uL (0.0-0.7); #Lymphocytes 1.5 thou/uL (1.20-3.40); #Monocytes 0.7 thou/uL (0.11-0.59); #Neutrophils 4.6 thou/uL (1.40-6.50); %Basophils 0.7 % (0.0-1.0); %Eosinophils 3.7 % (0.0-10.0); %Lymphocytes 20.9 % (21.0-51.0); %Monocytes 9.3 % (0.0-10.0); %Neutrophils 65.4 % (42.0-75.0); Hemoglobin 14.5 g/dL (14.0-18.0); Mean Corpuscular HGB CONC 33.5 g/dL (32.0-36.0); Mean Corpuscular Hemoglobin 30.3 pg (27.0-31.0); Mean Corpuscular Volume 90.3 fL (78.0-98.0); Mean Platelet Volume 8.2 fL (7.4-10.4); Platelet Count 198 thou/uL (130-400); RBC Distribution Width 12.5 % (11.5-14.5); White Blood Cell (WBC) Count 7.1 thou/uL (4.8-10.8)
[2019-02-03 18:40] LABS: Prothrombin Time 13.7 SEC (12.0-14.7)
[2019-02-03 18:56] LABS: ALT (SGPT) 23 U/L (8-55); AST (SGOT) 18 U/L (5-34); Albumin 4.1 g/dL (3.4-4.8); Alkaline Phosphatase 80 U/L (40-150); Anion Gap 13 mmol/L (10-20); BUN (Urea Nitrogen) 28 mg/dL (8.4-25.7); Bilirubin, Total 0.4 mg/dL (0.2-1.2); Calc. Creatinine Clearance 82 mL/min (70-130); Calcium 10.1 mg/dL (7.8-10.44); Carbon Dioxide 26 mmol/L (23-31); Chloride 108 mmol/L (98-107); Estimated GFR-MDRD 49; Globulin 2.7 g/dL (2.4-3.5); Glucose 99 mg/dL (80-115); Potassium 4.4 mmol/L (3.5-5.1); Protein, Total 6.8 g/dL (5.8-8.1); Sodium 143 mmol/L (136-145)
[2019-02-03] MEDS: Atorvastatin Calcium 10 MG TAB PO SCH (20:05)
[2019-02-03] MEDS: Zolpidem Tartrate 5 MG TAB PO SCH (20:05)
[2019-02-03] MEDS: Enoxaparin Sodium 120 MG/0.8 ML SYRINGE SC SCH (20:05)
[2019-02-04 05:23] LABS: Cardiac Risk 4.8 (Less than 4.5)
[2019-02-04] MEDS ORDERED: Lisinopril 20 MG TAB PO SCH (09:00)
[2019-02-04] MEDS: Enoxaparin Sodium 120 MG/0.8 ML SYRINGE SC SCH (09:03)
[2019-02-04] MEDS: Lisinopril 20 MG TAB PO SCH ×2 (09:03→20:51)
[2019-02-04] MEDS ORDERED: Iopamidol 370 76% 50 ML VIAL FS ONE (09:48)
[2019-02-04] MEDS ORDERED: traMADol HCl 50 MG TAB PO PRN (17:25)
--- NOTE | 2019-02-04 20:30 | OP ---
DATE OF PROCEDURE: 02/04/2019 PREOPERATIVE DIAGNOSIS: Left deep venous thrombosis with recurrence, on anticoagulation. POSTOPERATIVE DIAGNOSIS: Left deep venous thrombosis with recurrence, on anticoagulation. PROCEDURE: 1. Inferior venacavogram. 2. Inferior vena cava with filter placement-TrapEase placed with its superior tip at L1-L2 junction. ANESTHESIA: 1% lidocaine. TOTAL CONTRAST: 6 mL. TOTAL FLUORO TIME: 0.4 minutes. DESCRIPTION OF PROCEDURE: Mr. Forman was brought to the labor relations consultant, placed in supine position on labor relations consultant table. Groins were prepped and draped in usual sterile fashion. Using ultrasound guidance, the area above the femoral vein was anesthetized with 1% lidocaine. Percutaneous access femoral vein was obtained using modified Seldinger technique. The cavogram sheath placed at L2. Cavogram was performed visualizing the renal veins with the lowest renal vein at the mid body of L1. Vena cava measured less than 2.5 cm in maximal diameter. The tip of the vena cava filter was then positioned at the L1-L2 junction and deployed. Filter seated nicely. Sheath was removed and manual pressure held for hemostasis. The patient tolerated the procedure well. Job ID: [id number]
[2019-02-04] MEDS: Atorvastatin Calcium 10 MG TAB PO SCH (20:52)
[2019-02-04] MEDS: Zolpidem Tartrate 5 MG TAB PO SCH (20:52)
[2019-02-04] MEDS: Dabigatran 150 mg Capsule PO SCH (20:52)
[2019-02-05 08:15] VITALS: BP 140/83; TEMP 98.3
[2019-02-05] MEDS: Lisinopril 20 MG TAB PO SCH (08:49)
[2019-02-05] MEDS: Dabigatran 150 mg Capsule PO SCH (08:49)
--- NOTE | 2019-02-05 12:06 | HP ---
DATE OF CONSULTATION: HISTORY OF PRESENT ILLNESS: Mr. Forman is a 68-year-old gentleman, who in September of this year had a left leg DVT. He was started on Eliquis and doing quite well. He had recurrent leg pain, calf tenderness, and cramping over the weekend. He was found to have progression of his DVT on ultrasound. He was admitted, and I was asked to see him to consider IVC filter placement. PAST MEDICAL HISTORY: 1. History of previous TIA. 2. History of DVT. 3. Left carotid stenosis, status post endarterectomy. PAST SURGICAL HISTORY: 1. Bilateral cataracts. 2. Tonsillectomy. 3. Left carotid endarterectomy. SOCIAL HISTORY: He is . He does not use tobacco. ALLERGIES: NONE. MEDICATIONS: Medications prior to admission are noted. PHYSICAL EXAMINATION: GENERAL: This is a well-developed, well-nourished man, resting comfortably in bed. VITAL SIGNS: Height is 5 feet 11 inches, weight is 257 pounds, BSA is 2.42. Temperature is 98.1, pulse is 48 and regular, blood pressure 178/88. LUNGS: Clear bilaterally. HEART: Rhythm is regular without murmur. ABDOMEN: Soft and nontender. EXTREMITIES: He has edema of the left lower extremity with a tender calf. VASCULAR: He has palpable pedal pulses bilaterally. ASSESSMENT AND PLAN: Recurrent deep venous thrombosis, on Eliquis, for inferior vena cava filter placement. I have discussed a permanent filter with him, and he is agreeable and signed. Job ID: [id number]
--- NOTE | 2019-02-10 17:48 | EKG ---
Test Reason : Blood Pressure : / mmHG Vent. Rate : 067 BPM Atrial Rate : 067 BPM P-R Int : 214 ms QRS Dur : 088 ms QT Int : 412 ms P-R-T Axes : 048 092 072 degrees QTc Int : 435 ms Sinus rhythm with 1st degree A-V block Rightward axis Borderline ECG When compared with ECG of 28-MAR-2017 13:14, RI interval has increased Confirmed by CHRISTIAN HERNANDEZ ([id number]) on 02/10/2019 5:47:57 PM Referred By: [email or web address] Confirmed By:CHRISTIAN HERNANDEZ
== END 2019-02-05 10:15 | disposition home or self-care (01) ==
LOC: 2SW 18:00
PROVIDERS: ADMIT Specialist; ATTEND Specialist
PROC: 0JH63WZ Insertion of Totally Implantable Vascular Access Device into Chest Subcutaneous Tissue and Fascia, Percutaneous Approach (ICD-10-PCS; principal; 2019-02-03)
DX: I82.402 Acute embolism and thrombosis of unspecified deep veins of left lower extremity (principal); I65.22 Occlusion and stenosis of left carotid artery; I44.0 Atrioventricular block, first degree; Z86.73 Personal history of transient ischemic attack (TIA), and cerebral infarction without residual deficits; Z79.01 Long term (current) use of anticoagulants; Z79.899 Other long term (current) drug therapy
CPT/HCPCS: 37191; 76942; 80053; 80061; 85025; 85610; 85730; 93005; 93971; 96372 ×2; C1769; G0378; 36415; 93010; J1644; J1650; Q9967

== ENCOUNTER 2021-06-15 08:22 | Outpatient (CLI) | payer MEDICARE | END 2021-06-15 08:23 | disposition home or self-care (01) | LOC: DTY/OP 08:22 | PROVIDERS: ATTEND Surgery | DX: E66.01 Morbid (severe) obesity due to excess calories (principal); E11.9 Type 2 diabetes mellitus without complications | CPT/HCPCS: 97802 ==

== ENCOUNTER 2021-08-16 06:13 | Outpatient (CLI) | payer MEDICARE ==
[2021-08-16 10:24] LABS: #Basophils 0.1 10x3/uL (0.0-0.2); #Eosinphils 0.3 10x3/uL (0.0-0.5); #Monocytes 0.7 10x3/uL (0.0-1.1); #Neutrophils 3.6 10x3/uL (1.5-8.4); %Basophils 0.9 % (0.0-2.0); %Eosinophils 5.8 % (0.0-6.0); %Lymphocytes 19.7 % (18.0-47.0); %Monocytes 12.2 % (0.0-10.0); %Neutrophils 61.2 % (40.0-75.0); Hemoglobin 14.6 g/dL (13.5-17.5); Mean Corpuscular HGB CONC 32.6 g/dL (32.0-36.0); Mean Corpuscular Hemoglobin 28.9 pg (27.0-33.0); Mean Corpuscular Volume 88.7 fl (81.2-95.1); Mean Platelet Volume 11.6 fl (7.4-10.4); Platelet Count 207 10x3/uL (150-450); RBC Distribution Width 13.2 % (11.5-14.5); Red Blood Cell (RBC) Count 5.05 10x6/uL (4.32-5.72); White Blood Cell (WBC) Count 5.9 10x3/uL (3.5-10.5)
[2021-08-16 10:30] LABS: ALT (SGPT) 36 U/L (8-55); AST (SGOT) 30 U/L (5-34); Albumin 4.4 g/dL (3.4-4.8); Alkaline Phosphatase 76 U/L (40-110); Anion Gap 15 mmol/L (10-20); BUN (Urea Nitrogen) 21 mg/dL (8.4-25.7); Bilirubin, Total 1.1 mg/dL (0.2-1.2); Calc. Creatinine Clearance 0 mL/min (70-130); Calcium 9.4 mg/dL (7.8-10.44); Carbon Dioxide 25 mmol/L (23-31); Chloride 107 mmol/L (98-107); Globulin 2.6 g/dL (2.4-3.5); Glucose 108 mg/dL (83-110); Potassium 4.5 mmol/L (3.5-5.1); Sodium 142 mmol/L (136-145)
[2021-08-16 13:19] LABS: Hemoglobin A1c 6.1 % (4.0-6.0)
[2021-08-16 18:50] LABS: SARS-CoV-2 PCR by NAA Not Detected (NotDetected)
== END 2021-08-16 06:14 | disposition home or self-care (01) ==
LOC: LABBT 06:13
PROVIDERS: ATTEND Surgery
DX: Z01.818 Encounter for other preprocedural examination (principal); E66.01 Morbid (severe) obesity due to excess calories; Z20.822 Contact with and (suspected) exposure to COVID-19
CPT/HCPCS: 71046; 80053; 83036; 85025; U0003; U0005

== ENCOUNTER 2021-12-14 20:47 | Emergency (ER) | payer MEDICARE ==
[2021-12-14] MEDS ORDERED: Fluorescein Opthalmic Strip ONE (22:16)
[2021-12-14] MEDS ORDERED: Proparacaine 0.5% Opth 15 ML BOT ONE (22:16)
[2021-12-14] MEDS ORDERED: Boostrix 0.5 ML (Tdap) VIAL ONE (22:55)
== END 2021-12-14 23:14 | disposition home or self-care (01) ==
LOC: ERS 20:47
DX: T15.01XA Foreign body in cornea, right eye, initial encounter (principal); Z86.73 Personal history of transient ischemic attack (TIA), and cerebral infarction without residual deficits; I10 Essential (primary) hypertension; Z79.899 Other long term (current) drug therapy; Z79.01 Long term (current) use of anticoagulants
CPT/HCPCS: 65222; 90471; 90715